=== PATIENT | male | born 1990 | race Caucasian/White ===

== ENCOUNTER 2017-10-12 18:42 | Emergency (ER) | payer OTHER, SELFPAY ==
[2017-10-12 18:43] VITALS: BP 162/81; PULSE 73; RESP 15; TEMP 37; O2SAT 95; BMI 29.0
--- NOTE | 2017-10-12 18:52 | CT_ITS ---
STUDY: CT BRAIN WITHOUT CONTRAST REASON FOR EXAM: Male, 26 years old. Fall RADIATION DOSAGE (If Supplied By Facility): CTDIvol = ( 44.99 ) mGy, DLP = ( 796.11 ) mGycm TECHNIQUE: Transaxial CT imaging of the brain was performed without administration of intravenous contrast material. Individualized dose optimization techniques were used for this CT. COMPARISON: None. FINDINGS: There is no acute bleed or infarct. There are normal white matter tracts. The ventricles are normal in configuration. There is no hydrocephalus. The visualized paranasal sinuses are clear. The mastoid air cells are well aerated. There is no skull fracture. CT/Brain/Head without Contrast IMPRESSION: No acute intracranial abnormality. Electronically Signed: Monty Izaguirre, at 19:31 EDT Tel , Service support ,
--- NOTE | 2017-10-12 18:59 | ED.DCSUM_ITS ---
- ER Visit Summary Date of Service: 10/12/17 Chief Complaint: Head trauma History of Present Illness: The patient is a 26 M who was drinking heavily on Thursday. He fell backwards striking his head on the wooden floor. There was a loss of consciousness for unknown known amount of time. He is complaining of headache with blurred vision, nausea and vomiting and significant other states he is not walking normally. He states he feels worse today than he did when he fell. He refused EMS transport on Thursday. He is on no anticoagulant. He has no medical problems. He has no allergies. He is on no medication. Please read written note for complete detail Physical Examination: Blood pressure is elevated 162/81. Head is atraumatic normocephalic. Pupils are equal round reactive. Extraocular muscles are intact. TMs are pearly white with landmarks noted. Nares patent with no drainage. Posterior pharynx without erythema or exudate. Uvula is midline. There is no dysphonia or dysphasia. Trachea is midline. There is no stridor with auscultation of the neck. His pain no patient over the occiput. Is no palpable depression. There is no clinical findings of basal skull fracture. There is no midline cervical spine tenderness. He has full active range of motion. Heart is regular without murmur, gallop or rub. S1 and S2 are normal. Lungs are clear to auscultation with good movement of air bilaterally. Abdomen is soft nontender. GCS is 15. Patient is alert and oriented ?3. Motor is 5/5. Sensation is intact. DTRs are symmetric without clonus or Babinski. Cranial nerves II through XII are intact. Finger to nose to finger was performed adequately. Test Results: Head was reviewed by me interpreted radiologist as negative. Emergency Department Course and Treatment: Since he reports loss of conscious for prolonged period time nausea vomiting trouble with vision a CT of the head is warranted. Treatment Plan: Appropriate home-going instructions for concussion Disposition: Discharged home with significant other Impression: Concussion with loss of consciousness This note was generated with [employer] software. It may contain incorrect words, spelling, and punctuation that were not noted in review of the chart prior to signing ED Disposition - Plan for ED Patient: Disposition: Home or Assisted Living Chief Complaint: Head Injury Instructions: ED Concussion Referrals: Care Physician,No Primary [Primary Care Provider] - Vickey Philip MD [STAFF PHYSICIAN] - 10-14 Days if not better Additional Instructions: Since you do not have a physician you referred to Dr. Vickey Philip.
[2017-10-12 20:49] VITALS: BP 115/62; PULSE 84; RESP 16; O2SAT 98
== END 2017-10-12 20:49 | disposition home or self-care (01) ==
PROVIDERS: Emergency Provider Emergency Medicine
DX: S06.0X9A Concussion with loss of consciousness of unspecified duration, initial encounter (principal); R40.2410 Glasgow coma scale score 13-15, unspecified time; W18.30XA Fall on same level, unspecified, initial encounter; Y93.89 Activity, other specified; Y92.89 Other specified places as the place of occurrence of the external cause; Y99.8 Other external cause status
CPT/HCPCS: 70450; 99282

== ENCOUNTER → 2018-12-24 08:10 | Outpatient (CLI) | payer OTHER, SELFPAY ==
[2018-12-24 12:41] LABS: Cholesterol 167 mg/dL (200); High Density Lipoprotein 55 mg/dL; Triglycerides 68 mg/dL; Very Low Density Lipoprotein 14 mg/dL (5-40)
== END ==
PROVIDERS: Family Provider Family Medicine; PCP Family Medicine; Visit Provider Family Medicine
DX: Z00.01 Encounter for general adult medical examination with abnormal findings (principal); E78.5 Hyperlipidemia, unspecified
CPT/HCPCS: 36415; 80061

== ENCOUNTER 2020-09-06 08:03 | Outpatient (RCR) | payer BC, SELFPAY | END 2020-10-23 23:59 | LOC: IMMUN 08:03 | PROVIDERS: PCP Family Medicine; Referring Provider Family Medicine; Visit Provider Family Medicine | DX: Z23 Encounter for immunization (principal) | CPT/HCPCS: 0001A; 0002A; 91300 ==

== ENCOUNTER → 2021-05-09 09:11 | Outpatient (CLI) | payer OTHER, SELFPAY | PROVIDERS: PCP Family Medicine; Referring Provider Physician Assistant Medical; Visit Provider Physician Assistant Medical | DX: U07.1 COVID-19 (principal) | CPT/HCPCS: 87635; U0005; U0003 ==